=== PATIENT | female | born 2000 | race Two or more races ===

== ENCOUNTER 2022-08-01 13:54 | Emergency (ER) | payer SELFPAY ==
[2022-08-01 13:58] VITALS: BP 130/85; PULSE 100; RESP 18; TEMP 36.9; O2SAT 98; BMI 31.3
--- NOTE | 2022-08-01 14:11 | ED.GENADUL1 ---
HPI - General Adult General Chief complaint: Chest Pain Stated complaint: CHEST PAIN/ SHORTNESS OF BREATH Time Seen by Provider: 08/01/22 14:11 Source: patient Mode of arrival: walk-in Limitations: no limitations History of Present Illness HPI narrative: pt presents to emergency department complaining of chest pain. Patient states the pain is worse to bilateral anterior upper ribs. She states the pain has been ongoing intermittently well for one month. Switches from [id number]. She has been checking her breast to make sure that she doesn't palpate any masses but is not sure that she is when it correctly. She has no previous history of no family history of breast cancer. Denies any shortness of breath. She denies any fever, chills, or cough. There are no sick contacts in household. The pain extends from the sternum to the axilla bilaterally. There are no rashes.Patient has not had any Tylenol or Motrin at home. She has not taking anything for pain. She denies any lower extremity edema, cramping. Related Data Previous Rx's Medication Instructions Recorded ibuprofen 800 mg tablet 800 mg PO Q8H PRN pain #20 tabs 08/01/22 Allergies Allergy/AdvReac Type Severity Reaction Status Date / Time No Known Drug Allergies Allergy Verified 08/01/22 14:00 Review of Systems ROS Status of ROS 10 or more systems reviewed and unremarkable except as noted in history and below Exam Narrative Exam Narrative: Nurses notes and vital signs reviewed and patient is not hypoxic. General: Nontoxic, Well-appearing and in no apparent distress. Skin: Warm, dry, no pallor noted. No Rash Head: Normocephalic, atraumatic. Neck: Supple, non-tender. Eye: Pupils are equal, round and EOMI. No scleral icterus. Ears, Nose, Mouth, and Throat: TM clear, no posterior oropharynx erythema or nasal mucosal hypertrophy, uvula is mid-line Oral mucosa is moist Cardiovascular: Regular Rate and Rhythm without murmur, gallop or rub. Respiratory: No accessory muscle use or respiratory distress. Lungs are clear to auscultation, no wheezing, rales or rhonchi Chest Wall: tenderness To palpation to bilateral costosternal junction and laterally to the axilla. There is no erythema, ecchymosis, signs of trauma, or infection. There is no crepitance.It is reproducible. Back: No midline thoracic or lumbar vertebral tenderness. No CVA tenderness Musculoskeletal: normal ROM, no calf or popliteal tenderness, no lower extremity edema/swelling GI: Abdomen is soft, non-distended. Normal bowel sounds. No masses appreciated. No tenderness to palpation. No rebound, guarding, or rigidity noted. Neurological: A&O x4. No cranial nerve dysfunction observed. No truncal ataxia. Moves all extremities. Sensation intact. Psychiatric: Cooperative and interactive. Normal mood and affect. Constitutional Vital Signs - 24 hr 08/01/22 13:58 Temperature 98.5 F Pulse Rate [Monitor] 100 H Respiratory Rate 18 Blood Pressure [Right Arm] 130/85 H Pulse Oximetry 98 Oxygen Delivery Method Room Air Course Vital Signs Vital signs: Vital Signs Temperature 98.5 F 08/01/22 13:58 Pulse Rate 100 H 08/01/22 13:58 Respiratory Rate 18 08/01/22 13:58 Blood Pressure 130/85 H 08/01/22 13:58 Pulse Oximetry 98 08/01/22 13:58 Oxygen Delivery Method Room Air 08/01/22 13:58 Temperature 98.5 F 08/01/22 13:58 Pulse Rate 100 H 08/01/22 13:58 Respiratory Rate 18 08/01/22 13:58 Blood Pressure 130/85 H 08/01/22 13:58 Pulse Oximetry 98 08/01/22 13:58 Oxygen Delivery Method Room Air 08/01/22 13:58 Medical Decision Making MDM Narrative Medical decision making narrative: EKG shows a sinus rhythm without any acute ischemic changes. Chest x-ray is unremarkable. The patient's pain is consistent with musculoskeletal etiology. Patient was given Motrin which helps her symptoms. The patient and I discussed at length breast exams, follow-up with [facility], and primary care doctor. She will continue to take Motrin. At this time the patient is without objective evidence of an acute process requiring hospitalization or inpatient management. The patient has remained hemodynamically stable. No additional indication for emergent studies at this time. I answered all questions. Discussed discharge instructions including standard anticipatory guidance and what should prompt a return to the emergency department, including if they get worse are not getting better or develops any new or concerning symptoms. I've given them specific time frame in which to follow-up, and who to follow-up with. The patient demonstrates understanding. Patient is nontoxic and stable for discharge with outpatient follow-up. This note was created with the assistance of a speech recognition program. Although the intention is to generate documents that actually reflects the content of the visit, no guarantees can be provided that every mistake has been identified and corrected by editing. ECG Data Attestation: I personally reviewed and interpreted this ECG as follows: Discharge Plan Discharge Chief Complaint: Chest Pain Clinical Impression: Costochondral pain Patient Disposition: Home, Self-Care Time of Disposition Decision: 15:17 Condition: Good Mode of Transportation: Private Vehicle Prescriptions / Home Meds: New ibuprofen 800 mg tablet 800 mg PO Q8H PRN (Reason: pain) Qty: 20 0RF Instructions: Costochondritis (ED) Stand Alone Forms: Portal Instructions Referrals: GREGORY WHALEN MD [Physician] - 1 week Physician,Non-Staff, [Primary Care Provider] - 1 week
--- NOTE | 2022-08-01 14:12 | XR_ITS ---
The [address] [address] Patient Name: DORIE FUNES MRN: [id number] date: 2000 Sex: F Assigned Patient Location: ER Current Patient Location: ER Accession/Order Number: [id number] Exam Date: 08/01/2022 14:45 Report Date: 08/01/2022 15:12 At the request of: YANCY STORY Procedure: XR chest 1V EXAMINATION: XR chest 1V HISTORY: cp CHEST PAIN AND PRESSURE FOR 1 MONTH COMPARISON: No relevant comparison available. FINDINGS: LUNGS: No significant pulmonary parenchymal abnormalities. VASCULATURE: No increased pulmonary vasculature. PLEURA: No pneumothorax, effusion, or pleural thickening. CARDIAC: No cardiomegaly or cardiac silhouette abnormality. MEDIASTINUM: No visible mass or adenopathy. BONES: No fracture or visible bone lesion. OTHER: Negative. IMPRESSION: 1. No acute cardiopulmonary process. Electronically authenticated by: THERESE TURK Date: 08/01/2022 15:12
--- NOTE | 2022-08-01 14:13 | ECG_ITS ---
The [facility] Test Date: 2022-08-01 Pat Name: DORIE FUNES Department: Room: - Gender: Female Clinical Data Research: : 2000 Requested By: Order Number: [id number] Reading MD: EMILY VIDAL Measurements Intervals [place] Rate: 86 P: 33 OK: 136 QRS: 75 QRSD: 78 T: 57 QT: 348 QTc: 391 Interpretive Statements 1100 Sinus rhythm 1102 Sinus arrhythmia 9110 normal ECG No previous ECG available for comparison Electronically Signed On 08-02-2022 6:32:09 EDT by EMILY VIDAL
[2022-08-01] MEDS: IBUPROFEN 400 MG TABLET 800 MG PO (14:22)
[2022-08-01 15:40] VITALS: BP 111/77; PULSE 102; RESP 14; O2SAT 100
== END 2022-08-01 15:41 | disposition home or self-care (01) ==
PROVIDERS: Emergency Provider Emergency Medicine
DX: R07.1 Chest pain on breathing (principal)
CPT/HCPCS: 71045; 93005; 99284

== ENCOUNTER 2023-08-18 10:00 | Outpatient (OUT) | payer MEDICAID, SELFPAY ==
--- NOTE | 2023-08-18 | US_ITS ---
[address] [address] Patient Name: DORIE FUNES MRN: [id number] date: 2000 Sex: F Assigned Patient Location: US Current Patient Location: US Accession/Order Number: [id number] Exam Date: 08/18/2023 10:05 Report Date: 08/18/2023 10:42 At the request of: NON-STAFF PHYSICIAN Procedure: US OB transvaginal EXAMINATION: US OB transvaginal HISTORY: DATING AND VIABILITY, CRAMPING IN EARLY COMPARISON: No relevant comparison available. FINDINGS: Transvaginal images Gestational sac: Normal morphology, 1.20 cm, 5 weeks 2 days Yolk sac: 2.0 mm pole: Not visualized Cervix: Closed, 4.7 cm The uterus is normal, anteverted The right ovary is normal measuring 4.9 x 3.0 x 3.4 cm. Corpus luteal cyst measuring 2.6 cm Left ovary is normal Clinical age: 7 weeks 1 day Clinical [place]: 04/07/2024 Ultrasound age: 5 weeks 2 days Ultrasound CORINA: 04/17/2024 US/US OB transvaginal IMPRESSION: Early intrauterine gestation measuring 5 weeks 2 days Electronically authenticated by: KORTNEY STRATTON Date: 08/18/2023 10:42
== END 2023-08-18 10:01 | disposition home or self-care (01) ==
LOC: US 10:00
DX: Z36.87 Encounter for antenatal screening for uncertain dates (principal); Z3A.01 Less than 8 weeks gestation of pregnancy
CPT/HCPCS: 76817